=== PATIENT | male | born 1965 | race Asian ===

== ENCOUNTER 2021-07-04 20:37 | Emergency (ER) | payer BC, SELFPAY ==
[2021-07-04] VITALS (7 sets, daily range): BP systolic 121–135; BP diastolic 86–95; PULSE 80–94; RESP 16–25; TEMP 36.9; O2SAT 97–100
--- NOTE | ~2021-07-04 | XR_ITS ---
EXAMINATION: XR chest 2V 07/04/2021 21:21 INDICATION: Irregular heart rate PROCEDURE: 2 view chest COMPARISON: No prior studies for comparison. FINDINGS: The lungs are clear. The cardiomediastinal silhouette is within normal limits. There are no pleural effusions. There is no pneumothorax suspected. IMPRESSION: 1: NO ACUTE CARDIOPULMONARY DISEASE. Reviewed, dictated and finalized at location A. OMER SALES DISTRIBUTOR
--- NOTE | 2021-07-04 20:38 | ECG_ITS ---
Measurements Intervals [place] Rate: 81 P: 60 NV: 178 QRS: -70 QRSD: 112 T: 52 QT: 381 QTc: 443 Interpretive Statements SINUS RHYTHM ATRIAL PREMATURE COMPLEXES INCOMPLETE RIGHT BUNDLE BRANCH BLOCK LEFT ANTERIOR FASCICULAR BLOCK ABNORMAL ECG Electronically Signed On 07-05-2021 7:50:12 TOWEL HEMMER by Roby Johnson D.O.
[2021-07-04 21:21] LABS: Basophils Percent Auto 0.5 % (0.2-1.2); Eosinophils Absolute Auto 0.1 K/mm3 (0-0.3); Eosinophils Percent Auto 1.3 % (0-4.4); Hematocrit 43.2 % (42.0-52.0); Hemoglobin 14.2 g/dL (14.0-18.0); Immature Granulocyte Absolute 0.01 K/mm3 (0.00-0.031); Immature Granulocyte Percent A 0.1 % (0-0.5); Lymphocytes Absolute Auto 3.01 K/mm3 (0.9-3.2); Lymphocytes Percent Auto 36.3 % (18.3-44.2); Mean Corpuscular HGB Conc 32.9 g/dl (32-36); Mean Corpuscular Hemoglobin 30.1 pg (26-34); Mean Corpuscular Volume 91.5 fl (80-100); Mean Platelet Volume 10.1 fl (7.4-10.4); Monocytes Absolute Auto 0.6 K/mm3 (0.1-0.6); Monocytes Percent Auto 7.5 % (2.6-8.5); Neutrophils Absolute Auto 4.5 K/mm3 (1.3-6.7); Neutrophils Percent Auto 54.3 % (45.5-73.1); Platelet Count Result 196 k/mm3 (150-375); Red Blood Count 4.72 M/mm3 (4.6-6.20); Red Cell Distribution Width 12.8 % (11.5-14.5); White Blood Count 8.3 K/mm3 (4.5-10.0)
--- NOTE | 2021-07-04 21:28 | ED.ARRPALP ---
HPI - Arrhythmia/Palpitations General Chief Complaint: Arrhythmia/Palpitations Stated Complaint: Palpitations Time Seen by Provider: 07/04/21 20:41 History of Present Illness HPI narrative: Patient is a 56-year-old male who presents ER with palpitations. Reports for over 20 years of his life he has had PVCs that been picked up on Holter monitors and other exams. He was seen a practical nurse clinical coordinator who told him he could take magnesium document. Reports these moments of dropped beats occur when he is having stress. Reports he is not been having stress recently as he was recently passed a test at work that is leading to a promotion. Reports he has been feeling the dropped beats when he exercises which is atypical form. He also reports he had some cramping in his right shoulder yesterday afternoon. No fevers or chills or sweats. No chest pain. Reports he is contact his PCP and is scheduled to have a stress test next week. He is also recently cut caffeine out of his diet as he was drinking 4 cups of coffee every morning. Related Data Home Medications Medication Instructions Recorded Confirmed No Home Medications 03/23/21 03/23/21 Allergies Allergy/AdvReac Type Severity Reaction Status Date / Time No Known Allergies Allergy Verified 07/04/21 20:48 Review of Systems Review of Systems: All systems reviewed & are unremarkable except as noted in HPI and below Constitutional: Constitutional: Denies chills, Denies fever(s) and Denies weakness Cardiovascular: Cardiovascular: Denies chest pain and Denies rapid heart rate Comments: Dropped beats. Respiratory: Respiratory: Denies cough and Denies dyspnea Musculoskeletal: Musculoskeletal: Reports back pain, Denies arthralgias, Denies joint swelling and Reports muscle cramps [facility] Past Medical History Medical History (Updated 07/04/21 @ 22:20 by Gage Ken MD) History of retinal tear left eye 2009 Surgical History Surgical History (Updated 07/04/21 @ 21:33 by Gage Ken MD) No pertinent past surgical history Family History Family History Father Cancer Grandparent Thyroid disorder Social History Social History Smoking status: Never smoker Second hand tobacco smoke exposure: No Alcohol intake: never Substance use: never Substance use type: does not use Gender identity (if verbalized by the patient): Male Exam Narrative: GENERAL: Well-appearing, well-nourished, and in no acute distress. HEAD: Normocephalic, atraumatic. CHEST: Clear to auscultation. No respiratory distress. HEART: Regular rate and rhythm. Occasional dry peak correlating with PACs on monitor. Normal peripheral pulses. EXTREMITIES: Normal range of motion. No edema. SKIN: Warm, dry, no rash. NEURO: Alert and oriented x3. PSYCH: Normal mood and affect. Course Course Emergency Course: Patient resting comfortably. Informed results. Given reassurance. Follow-up with PCP. Vital Signs Vital signs: Vital Signs Temperature 98.5 F 07/04/21 20:46 Pulse Rate 94 07/04/21 20:46 Respiratory Rate 16 07/04/21 20:46 Blood Pressure 135/95 H 07/04/21 20:46 Pulse Oximetry 100 07/04/21 20:46 Temperature 98.5 F 07/04/21 20:46 Pulse Rate 81 07/04/21 21:45 Respiratory Rate 20 07/04/21 21:45 Blood Pressure 121/86 07/04/21 21:13 Pulse Oximetry 97 07/04/21 21:45 MDM - Arrhythmia/Palpitations Lab Data Result diagrams: 07/04/21 21:14 07/04/21 21:14 Labs: Lab Results 07/04/21 07/04/21 07/04/21 Range/Units 21:14 21:14 21:14 WBC 8.3 (4.5-10.0) K/mm3 RBC 4.72 (4.6-6.20) M/mm3 Hgb 14.2 (14.0-18.0) g/dL Hct 43.2 (42.0-52.0) % MCV 91.5 (80-100) fl MCH 30.1 (26-34) pg MCHC 32.9 (32-36) g/dl RDW 12.8 (11.5-14.5) % Plt Count 196 (150-375) k/mm3 MPV 10.1 (7.4
[2021-07-04 21:30] LABS: Alanine Aminotransferase 42 U/L (4-50); Albumin Level 4.2 g/dL (3.5-5.1); Alkaline Phosphatase 61 U/L (38-126); Anion Gap 7 mmol/L (8-16); Aspartate Amino Transferase 40 U/L (17-59); Bilirubin,Total 0.3 mg/dL (0.2-1.3); Blood Urea Nitrogen 15 mg/dL (9-20); Calcium 8.7 mg/dL (8.4-10.2); Carbon Dioxide 27 mmol/L (22-30); Chloride 105 mmol/L (98-107); Estimated CRCL calculation 77 ml/min; Estimated Glomerular Filt Rate > 60; Glucose 114 mg/dL (65-110); INR 0.9; Lipase 174 U/L (23-300); Potassium 3.5 mmol/L (3.4-5.0); Prothrombin Time 12.1 Seconds (11.1-14.7); Sodium 139 mmol/L (137-145)
[2021-07-04 21:31] LABS: Magnesium 2.3 mg/dL (1.6-2.3)
[2021-07-04 21:42] LABS: Troponin I < 0.012 ng/mL (0.000-0.034)
== END 2021-07-04 22:40 | disposition home or self-care (01) ==
PROVIDERS: Emergency Provider Emergency Medicine; PCP Internal Medicine
DX: I49.1 Atrial premature depolarization (principal); I45.2 Bifascicular block
CPT/HCPCS: 36415; 71046; 80053; 83690; 83735; 84484; 85025; 85610; 85730; 93005; 99284

== ENCOUNTER 2021-07-13 10:00 | Outpatient (CLI) | payer BC, SELFPAY ==
--- NOTE | 2021-07-13 10:04 | EST_ITS ---
Patient Info Name: Kirk Hanna Age: 56 years : 1965 Gender: Male Ht: 69 in Wt: 180 lbs BSA: 2.01 m2 HR: 85 bpm BP: 102 / 78 mmHg Heart Rhythm: Sinus Rhythm Exam Date: 07/13/2021 10:24 AM Exam Location: [facility] Stress Patient Status: Outpatient Admit Date: 07/13/2021 Staff Ordering Physician: Yun Ricci Attending Provider: DR. GERARD Exercise Technologist: Usha Spann CT Exercise Physician: Roby Gerard DO Exam Type: CA stress test treadmill Study Info Indications R00.2 - Palpitations A treadmill exercise stress test was performed. Summary 1. 1. Negative [place] exercise stress test for ischemic ST changes by ECG criteria. 2. 2. Good functional capacity, achieving 13 METs of workload. 3. 3. Appropriate HR response to exercise. 4. 4. Appropriate HR recovery at 1 minute post exercise. 5. 5. No imaging with stress testing. 6. 6. Patient informed of the above results. Protocol: [place] Stress ECG Details Stage: REST Duration (min): 1 min : 19 sec Speed (mph): 0.0 Grade (%): 0 HR (bpm): 83 SBP (mmHg): 102 DBP (mmHg): 78 METS: --- Stage: REST Duration (min): 7 min : 46 sec Speed (mph): 0.0 Grade (%): 0 HR (bpm): 86 SBP (mmHg): 102 DBP (mmHg): 78 METS: --- Stage: REST Duration (min): 9 min : 38 sec Speed (mph): 0.0 Grade (%): 0 HR (bpm): 87 SBP (mmHg): 102 DBP (mmHg): 78 METS: --- Stage: STAGE 1 Duration (min): 1 min : 0 sec Speed (mph): 1.7 Grade (%): 10 HR (bpm): 109 SBP (mmHg): 102 DBP (mmHg): 78 METS: --- Stage: STAGE 1 Duration (min): 2 min : 0 sec Speed (mph): 1.7 Grade (%): 10 HR (bpm): 112 SBP (mmHg): 102 DBP (mmHg): 78 METS: --- Stage: STAGE 1 Duration (min): 3 min : 0 sec Speed (mph): 1.7 Grade (%): 10 HR (bpm): 112 SBP (mmHg): 121 DBP (mmHg): 80 METS: --- Stage: STAGE 2 Duration (min): 1 min : 0 sec Speed (mph): 2.5 Grade (%): 12 HR (bpm): 120 SBP (mmHg): 121 DBP (mmHg): 80 METS: --- Stage: STAGE 2 Duration (min): 2 min : 0 sec Speed (mph): 2.5 Grade (%): 12 HR (bpm): 122 SBP (mmHg): 142 DBP (mmHg): 82 METS: --- Stage: STAGE 2 Duration (min): 3 min : 0 sec Speed (mph): 2.5 Grade (%): 12 HR (bpm): 123 SBP (mmHg): 142 DBP (mmHg): 82 METS: --- Stage: STAGE 3 Duration (min): 1 min : 0 sec Speed (mph): 3.4 Grade (%): 14 HR (bpm): 136 SBP (mmHg): 127 DBP (mmHg): 84 METS: --- Stage: STAGE 3 Duration (min): 2 min : 0 sec Speed (mph): 3.4 Grade (%): 14 HR (bpm): 143 SBP (mmHg): 127 DBP (mmHg): 84 METS: --- Stage: STAGE 3 Duration (min): 3 min : 0 sec Speed (mph): 3.4 Grade (%): 14 HR (bpm): 144 SBP (mmHg): 142 DBP (mmHg): 84 METS: --- Stage: STAGE
== END 2021-07-13 10:01 | disposition home or self-care (01) ==
PROVIDERS: PCP Internal Medicine; Visit Provider Internal Medicine
DX: R94.39 Abnormal result of other cardiovascular function study (principal)
CPT/HCPCS: 93017

== ENCOUNTER 2021-08-14 10:04 | Outpatient (CLI) | payer BC, SELFPAY ==
--- NOTE | 2021-08-18 11:26 | WPDHOLTEREM ---
Holter/Event Monitor Holter/Event Monitor Date of procedure: 08/14/21 Holter/Event Procedure: 48 Hr Holter Monitor Indications: Palpitations Conclusion: 1. 48 hour holter monitor on 08/14/21. 2. Underlying rhythm is sinus rhythm. HR range 55-122 bpm; average HR 79 bpm. 3. There are 6 premature supraventricular complexes and 1 supraventricular couplets. No supraventricular tachycardia. 4. No premature ventricular complexes. No ventricular tachycardia. 5. No sinoatrial or atrioventricular blocks. No significant pauses greater than 2 seconds. 6. Patient reports symptoms of palpitations which demonstrate sinus rhythm, HR range 68-107 bpm.
== END 2021-08-14 10:05 | disposition home or self-care (01) ==
LOC: ANHCARD 10:05
PROVIDERS: PCP Internal Medicine; Visit Provider Internal Medicine
DX: R00.2 Palpitations (principal)
CPT/HCPCS: 93225; 93226

== ENCOUNTER 2021-08-20 07:21 | Outpatient (CLI) | payer BC, SELFPAY ==
--- NOTE | 2021-08-20 07:49 | ECHO_ITS ---
Patient Info Name: Kirk Hanna Age: 56 years : 1965 Gender: Male Ht: 69 in Wt: 180 lbs BSA: 2.01 m2 HR: 78 bpm BP: 116 / 81 mmHg Technical Quality: Good Exam Date: 08/20/2021 8:01 AM Exam Location: [facility] Patient Status: Outpatient Admit Date: 08/20/2021 Staff Ordering Physician: Genaro Quinonez DO Assistant Sales Center Manager: Candy Valle RDCS Attending Provider: Genaro Quinonez DO Referring Physician: Cristiano GAINES; Exam Type: CA echo doppler color flow Study Info Indications R00.2 - Palpitations Complete two-dimensional, color flow and Doppler transthoracic echocardiogram is performed. Summary 1. Complete two-dimensional, color flow and Doppler transthoracic echocardiogram is performed. 2. Left ventricular chamber dimension is normal. 3. Left ventricular systolic function is normal, estimated at 60-65%. 4. The left ventricular diastolic function is grade I diastolic dysfunction. 5. E/e' 4 is not elevated. 6. Global longitudinal strain is normal at -17.0%. 7. No pulmonary hypertension, estimated pulmonary arterial systolic pressure is 22 mmHg. 8. The aortic root size at the sinus of Valsalva is borderline dilated at 4.0 cm. Left Ventricle E/e' 4 is not elevated. Global longitudinal strain is normal at -17.0%. Left ventricular chamber dimension is normal. Left ventricular systolic function is normal, estimated at 60-65%. The left ventricular diastolic function is grade I diastolic dysfunction. Right Ventricle Right ventricular systolic function is normal and with normal TAPSE 2.3 cm. Right ventricular chamber dimension is normal. Left Atria Left atrial chamber dimension is normal. Right Atria Right atrial chamber dimension is normal. Aortic Valve The aortic valve is trileaflet. There is no aortic valve stenosis. There is no aortic valve regurgitation. Pulmonic Valve There is no pulmonic regurgitation. Mitral Valve There is no mitral valve stenosis. There is no mitral valve regurgitation. Tricuspid Valve There is no tricuspid valve regurgitation. No pulmonary hypertension, estimated pulmonary arterial systolic pressure is 22 mmHg. Pericardium/Pleural There is no pericardial effusion. Inferior Vena Cava Normal inferior vena cava with >50% collapse upon inspiration consistent with normal right atrial pressure, 5 mmHg. Aorta The aortic root size at the sinus of Valsalva is borderline dilated at 4.0 cm. Left Ventricular Outflow Tract Name Value Normal LVOT 2D LVOT Diameter 2.4 cm LVOT Doppler LVOT Peak Gradient 2 mmHg LVOT Mean Gradient 1 mmHg LVOT VTI 14 cm LVOT VTI/AV VTI Ratio 1.0 LVOT Stroke Volume 66 ml LVOT CO 5.2 l/min LVOT CI 2.6 l/min/m2 Pulmonic Valve Name Value Normal
== END 2021-08-20 07:22 | disposition home or self-care (01) ==
PROVIDERS: PCP Internal Medicine; Visit Provider Internal Medicine
DX: R00.2 Palpitations (principal)
CPT/HCPCS: 93306

== ENCOUNTER 2021-09-11 09:39 | Outpatient (CLI) | payer BC, SELFPAY ==
--- NOTE | ~2021-09-11 | US_ITS ---
EXAMINATION: US aorta DATE: 09/11/2021 10:43 INDICATION: Enlarged aorta. TECHNIQUE: Grayscale, color Doppler, and pulsed Doppler images of the aorta and common iliac arteries were obtained. COMPARISON: None. FINDINGS: The aorta is normal in caliber. The right common iliac artery is normal in caliber. The left common i liac artery is normal in caliber. IMPRESSION: 1. No abdominal aortic aneurysm. Reviewed, dictated and finalized at location A.
== END 2021-09-11 09:40 | disposition home or self-care (01) ==
PROVIDERS: PCP Internal Medicine; Visit Provider Nurse Practitioner
DX: I77.89 Other specified disorders of arteries and arterioles (principal)
CPT/HCPCS: 76775

== ENCOUNTER 2021-10-13 08:35 | Outpatient (CLI) | payer BC, SELFPAY ==
--- NOTE | ~2021-10-13 | CT_ITS ---
EXAMINATION: CTA chest DATE: 10/13/2021 09:24 INDICATION: Heart palpitations and shortness of breath TECHNIQUE: Computed tomographic angiography (CTA) of the chest was performed without and with 100 mL Omnipque-300 intravenous contrast. Maximum intensity projection 3D-reconstructions of the aorta and o ther arteries were constructed by the technologist on a separate workstation. The dose-length product (DLP) was 322.95 mGy-cm. Automated exposure control and iterative reconstruction technique were empl oyed. COMPARISON: None. FINDINGS: The ascending aorta measures approximately 4.2 cm at the level of the sinuses of Valsalva a nd 3.5 cm at the level of the main pulmonary artery. There is no dissection. The heart size is normal . The lungs are free of focal airspace opacities. There is mild dependent atelectasis. There is no pl eural effusion or pneumothorax. No pathologically enlarged thoracic lymph nodes are identified. There is a 1.5 cm nodule of the right thyroid lobe. There is mild thoracic spondylosis. Stones are noted i n the nondistended gallbladder. IMPRESSION: 1. Mild dilation of the aorta at the sinuses of Valsalva. No dissection. 2. Right thyroid nodule. Consider thyroid ultrasound for risk stratification. 3. Cholelithiasis. Reviewed, dictated and finalized at location F.
== END 2021-10-13 08:36 | disposition home or self-care (01) ==
LOC: ANHIMG 08:35
PROVIDERS: PCP Internal Medicine; Visit Provider Internal Medicine Cardiovascular Disease
DX: I77.89 Other specified disorders of arteries and arterioles (principal); K80.20 Calculus of gallbladder without cholecystitis without obstruction; E04.1 Nontoxic single thyroid nodule; M47.814 Spondylosis without myelopathy or radiculopathy, thoracic region
CPT/HCPCS: 71275; Q9967

== ENCOUNTER 2021-11-06 15:32 | Outpatient (CLI) | payer BC, SELFPAY ==
--- NOTE | ~2021-11-06 | US_ITS ---
EXAMINATION: US thyroid DATE: 11/06/2021 16:14 INDICATION: Nontoxic single thyroid nodule TECHNIQUE: Multiple ultrasound images of the thyroid were obtained. COMPARISON: None. FINDINGS: The right thyroid lobe measures 6.1 x 2.4 x 1.7 cm. The left thyroid lobe measures 5.2 x 2.4 x 2.1 c m. Solid hypoechoic wider than tall nodules with smooth margins and without echogenic foci (TI-RADS 4, moderately suspicious , FNA if >=1.5 cm, annual followup is >=1 cm) measuring 10 mm the inferior r ight thyroid, 8 mm at the inferior left thyroid and 2 mm at the junction of the right thyroid lobe an d isthmus. There is normal echotexture, echogenicity and vascular flow throughout the remainder of th e thyroid gland. IMPRESSION: 1. Multinodular goiter with a few TI-RADS 4 nodules, the largest measuring up to 10 mm for which shelbie al ultrasound follow-up would be recommended. Reviewed, dictated and finalized at location A. IMPRESSION: 1. Multinodular goiter with a few TI-RADS 4 nodules, the largest measuring up t o 10 mm for which annual ultrasound follow-up would be recommended.
== END 2021-11-06 15:33 | disposition home or self-care (01) ==
PROVIDERS: PCP Internal Medicine; Visit Provider Internal Medicine
DX: E04.2 Nontoxic multinodular goiter (principal)
CPT/HCPCS: 76536

== ENCOUNTER → 2021-12-28 09:22 | Outpatient (CLI) | payer BC, SELFPAY ==
[2021-12-28 11:09] LABS: SARS-CoV-2 RNA PCR Positive
== END ==
PROVIDERS: PCP Internal Medicine; Visit Provider Internal Medicine
DX: U07.1 COVID-19 (principal)
CPT/HCPCS: C9803; U0003; U0005

== ENCOUNTER 2022-09-11 08:33 | Emergency (ER) | payer BC, SELFPAY ==
[2022-09-11] VITALS (16 sets, daily range): BP systolic 110–138; BP diastolic 69–93; PULSE 72–90; RESP 13–22; O2SAT 96–100
--- NOTE | ~2022-09-11 | XR_ITS ---
EXAMINATION: XR chest 2V DATE: 09/11/2022 09:40 INDICATION: Chest pain TECHNIQUE: Frontal and lateral views of the chest are obtained COMPARISON: 07/04/2021 FINDINGS: The lungs are free of acute opacities. No pleural effusion or pneumothorax. The cardiomedia stinal silhouette is normal. There is mild thoracic spondylosis. IMPRESSION: 1. No acute cardiopulmonary abnormality. Reviewed, dictated and finalized at location A.
--- NOTE | ~2022-09-11 | CT_ITS ---
EXAMINATION: CTA chest abdomen DATE: 09/11/2022 10:03 INDICATION: Midsternal chest pain TECHNIQUE: Computed tomographic angiography (CTA) of the chest and abdomen was performed with 100 mL Omnipque-350 intravenous contrast. Maximum intensity projection 3D-reconstructions of the aorta and o ther arteries were constructed by the technologist on a separate workstation. The dose-length product (DLP) was 581.02 mGy-cm. Automated exposure control and iterative reconstruction technique were empl oyed. COMPARISON: 10/13/2021 FINDINGS: CHEST CTA: There is stable dilatation of the ascending aorta at the level of the sinuses of Valsalva measuring 4 .3 cm. The ascending aorta measures 3.4 cm at the level of the main pulmonary artery. There is no dis section. No pathologically enlarged thoracic lymph nodes are identified. The heart size is normal. Th ere is mild dependent atelectasis of the lungs. No pleural effusion or pneumothorax. Thyroid nodules are again noted which have been evaluated by thyroid ultrasound. There is mild thoracic spondylosis. ABDOMEN CTA: No aneurysm or dissection of the abdominal aorta. The celiac axis is small in size and gives rise to left gastric artery. The common hepatic and splenic arteries, and their associated branches, arise fr om the superior mesenteric artery. The inferior mesenteric artery is normal at its origin. There are single renal arteries. Stones are present in the nondistended gallbladder. Cysts of the liver measure up to 7 mm in the right hepatic lobe. The spleen, pancreas, and adrenal glands are normal. The kidne ys are unremarkable. There are no pathologically enlarged abdominal lymph nodes. No free intraperiton eal gas or evidence of bowel obstruction. IMPRESSION: 1. Stable mild dilatation of the ascending aorta at the sinuses of Valsalva. No dissection. 2. Cholelithiasis without evidence of cholecystitis. Reviewed, dictated and finalized at location A.
--- NOTE | 2022-09-11 08:36 | ECG_ITS ---
Measurements Intervals [place] Rate: 80 P: 78 MA: 183 QRS: -84 QRSD: 100 T: 65 QT: 383 QTc: 442 Interpretive Statements SINUS RHYTHM WITH SINUS ARRHYTHMIA INCOMPLETE RIGHT BUNDLE BRANCH BLOCK [90+ ms QRS DURATION, TERMINAL R IN V1/V2, 40+ ms S IN I/aVL/V4/V5/V6] LEFT ANTERIOR FASCICULAR BLOCK [QRS AXIS <= -45, QR IN I, RS IN II] COMPARED TO ECG 07/04/2021 20:41:24 SINUS ARRHYTHMIA NOW PRESENT Electronically Signed On 09-11-2022 12:17:19 CDT by Jesse Martinez M.D.
[2022-09-11] MEDS: ASPIRIN 81 MG CHEWABLE TABLET 324 MG PO (08:45)
[2022-09-11 09:01] LABS: Basophils Percent Auto 0.5 % (0.2-1.2); Eosinophils Absolute Auto 0.1 K/mm3 (0-0.3); Eosinophils Percent Auto 1.7 % (0-4.4); Hematocrit 46.9 % (42.0-52.0); Hemoglobin 15.1 g/dL (14.0-18.0); Immature Granulocyte Absolute 0.04 K/mm3 (0.00-0.031); Immature Granulocyte Percent A 0.6 % (0-0.5); Lymphocytes Absolute Auto 2.05 K/mm3 (0.9-3.2); Lymphocytes Percent Auto 30.9 % (18.3-44.2); Mean Corpuscular HGB Conc 32.2 g/dl (32-36); Mean Corpuscular Hemoglobin 29.5 pg (26-34); Mean Corpuscular Volume 91.6 fl (80-100); Mean Platelet Volume 10.1 fl (7.4-10.4); Monocytes Absolute Auto 0.3 K/mm3 (0.1-0.6); Neutrophils Absolute Auto 4.1 K/mm3 (1.3-6.7); Neutrophils Percent Auto 61.3 % (45.5-73.1); Platelet Count Result 220 k/mm3 (150-375); Red Blood Count 5.12 M/mm3 (4.6-6.20); Red Cell Distribution Width 13.5 % (11.5-14.5); White Blood Count 6.6 K/mm3 (4.5-10.0)
[2022-09-11 09:10] LABS: Alanine Aminotransferase 48 U/L (6-50); Albumin Level 4.6 g/dL (3.5-5.1); Alkaline Phosphatase 52 U/L (38-126); Anion Gap 7 mmol/L (8-16); Aspartate Amino Transferase 44 U/L (17-59); Bilirubin,Total 0.8 mg/dL (0.2-1.3); Blood Urea Nitrogen 13 mg/dL (9-20); Calcium 8.9 mg/dL (8.4-10.2); Carbon Dioxide 30 mmol/L (22-30); Chloride 103 mmol/L (98-107); Estimated CRCL calculation 91 ml/min; Estimated Glomerular Filt Rate > 60; Glucose 87 mg/dL (65-110); Lipase 180 U/L (23-300); Potassium 4.1 mmol/L (3.4-5.0); Sodium 140 mmol/L (137-145)
[2022-09-11 09:11] LABS: INR 0.9; Partial Thromboplastin Time 31.1 SECONDS (22.3-36.8); Prothrombin Time 12.3 Seconds (11.1-14.7)
[2022-09-11 09:22] LABS: Troponin I < 0.012 ng/mL (0.000-0.034)
--- NOTE | 2022-09-11 09:47 | ED.CHESTPAIN ---
HPI - Chest Pain General Chief Complaint: Chest Pain <Mariaelena Bryant PA-C - Last Filed: 09/11/22 12:54> Stated Complaint: chest pain <JACOBY Lynch Last Filed: 09/11/22 12:54> Time Seen by Provider: 09/11/22 09:01 <Mariaelena Bryant PA-C - Last Filed: 09/11/22 12:54> History of Present Illness HPI narrative: 57-year-old male with a history of IBS reports for evaluation of chest pain that started yesterday. Patient states he was sitting in his recliner last night at 10 PM when he experienced a sharp substernal chest pain that lasted a couple seconds, followed by intermittent chest tightness until he went to sleep. Patient reports waking up this morning with intermittent chest tightness, went about his day and began to experience the sharp chest pain again while eating breakfast. Reports it lasted a couple seconds again, simultaneously he experienced nausea and right-sided jaw pain lasting a few seconds. States since then the chest pain has subsided and he is currently denying chest pain. He does endorse shortness of breath that only occurs when he takes a shower which has been ongoing for the past year. Patient also reports palpitations that occur when he exercises which has been going on for the past year. He was evaluated by Dr. Johnson in 2021 with an ultimately unremarkable work-up other than a mild dilation of ascending aorta at 4.2 cm. Patient is denying current shortness of breath, chest pain, abdominal pain, syncope or dizziness, nausea, vomiting, lower extremity edema, cough or congestion. <Mariaelena Bryant PA-C - Last Filed: 09/11/22 12:54> Related Data Home Medications: Home Medications Medication Instructions Recorded Confirmed ascorbate calcium (vitamin C) 500 500 mg PO DAILY 09/30/21 03/29/22 mg tablet multivitamin 1 tablet PO DAILY 09/30/21 03/29/22 <Mariaelena Bryant PA-C - Last Filed: 09/11/22 12:54> Allergies/Adverse Reactions: Allergies Allergy/AdvReac Type Severity Reaction Status Date / Time No Known Allergies Allergy Verified 09/11/22 08:52 <JACOBY Lynch Last Filed: 09/11/22 12:54> Review of Systems Review of Systems: CONSTITUTIONAL: Denies fever, chills EYES: Denies visual changes, redness, or discharge. ENT: Denies rhinorrhea, congestion, sore throat, or otalgia. CARDIOVASCULAR: See HPI RESPIRATORY: Denies cough or dyspnea. GASTROINTESTINAL: Denies abdominal pain, nausea, vomiting, or diarrhea. GENITOURINARY: Denies dysuria or hematuria. SKIN: Denies rash or itching. MUSCULOSKELETAL: Denies back pain, joint pain, or myalgia. NEUROLOGIC: Denies headache, numbness, dizziness, or weakness. PSYCHIATRIC: Denies anxiety or depression. <Mariaelena Bryant PA-C - Last Filed: 09/11/22 12:54> [facility] Past Medical History Medical History: Medical History History of retinal tear left eye 2009 <Mariaelena Bryant PA-C - Last Filed: 09/11/22 12:54> Surgical History Surgical History: Surgical History No pertinent past surgical history <Mariaelena Bryant PA-C - Last Filed: 09/11/22 12:54> Family History Family History: Family History Father Cancer Grandparent Thyroid disorder <Mariaelena Bryant PA-C - Last Filed: 09/11/22 12:54> Social History Social History: Social History Smoking status: Never smoker Second hand tobacco smoke exposure: No Alcohol intake: never Substance use: never Substance use type: does not use Lack of Transportation: No Lack of Food: Never True Current Housing: I Have Housing Concerned About Future Housing: No Difficulty Paying Gas/Electric Bills: No Difficulty Paying for Meds: No Currently Unemployed: No Education: [employer]
[2022-09-11 12:15] LABS: NT Pro B Type Natriuretic Pept 45 pg/mL (19.9-100); Troponin I < 0.012 ng/mL (0.000-0.034)
== END 2022-09-11 12:54 | disposition home or self-care (01) ==
PROVIDERS: Emergency Medicine; Emergency Provider Physician Assistant; PCP Internal Medicine
DX: R07.89 Other chest pain (principal); I77.819 Aortic ectasia, unspecified site; K80.20 Calculus of gallbladder without cholecystitis without obstruction
CPT/HCPCS: 36415; 71046; 71275; 74175; 80053; 83690; 83880; 84484; 85025; 85610; 85730; 93005; 99284; A9270; Q9967

== ENCOUNTER 2023-04-27 08:31 | Outpatient (CLI) | payer BC, SELFPAY ==
--- NOTE | ~2023-04-27 | US_ITS ---
EXAMINATION: US thyroid DATE: 04/27/2023 09:07 INDICATION: Nontoxic single thyroid nodule. TECHNIQUE: Multiple ultrasound images of the thyroid were obtained. COMPARISON: Ultrasound 11/06/2021 FINDINGS: The right thyroid lobe measures 5.5 x 2.0 x 1.8 cm. The left thyroid lobe measures 5.0 x 1.8 x 2.1 c m. In the right thyroid lobe, there is a 2.1 cm solid, hypoechoic, wider than tall nodule with crystal h margin without echogenic foci (TI-RADS TR4). In the right thyroid lobe, there is a 1.4 cm solid, hy poechoic, wider than tall nodule with lobulated margin without echogenic foci (TR4). In the left thyr oid lobe, there is a 9 mm solid, hypoechoic, wider than tall nodule with smooth margin without echoge brandi foci (TR4). In the left thyroid lobe, there is a 6 mm solid, hypoechoic, wider than tall nodule w ith smooth margin without echogenic foci (TR4). IMPRESSION: 1. Multinodular goiter. Ultrasound-guided fine-needle aspiration of the 2.1 cm right thyroid nodule i s recommended. Reviewed, dictated and finalized at location A. OL YEAR NANNY IMPRESSION: 1. Multinodular goiter. Ultrasound-guided fine-needle aspiration of the 2.1 cm right thyroid nodule is recommended.
== END 2023-04-27 08:32 | disposition home or self-care (01) ==
PROVIDERS: PCP Family Medicine; Visit Provider Nurse Practitioner Family
DX: E04.2 Nontoxic multinodular goiter (principal)
CPT/HCPCS: 76536

== ENCOUNTER 2023-05-26 12:40 | Outpatient (CLI) | payer BC, SELFPAY ==
--- NOTE | ~2023-05-26 | US_ITS ---
EXAMINATION: US FNA w image guidance DATE: 05/26/2023 13:43 INDICATION: Nontoxic single thyroid nodule. TECHNIQUE: The procedure and its benefits and risks were discussed with the patient. Risks specifically discusse d included bleeding. The patient verbalized understanding of the risks and agreed to proceed. The nec k was prepped and draped in the usual sterile manner. 1% lidocaine was used for local anesthesia. 7 passes were made with a 25G needle into the lesion under ultrasound guidance. There were no immedia te complications. FINDINGS: Grayscale ultrasound images demonstrate needles advanced into a 2.0 cm nodule in right thyroid lobe f or biopsy. IMPRESSION: 1. Ultrasound-guided fine needle aspiration of a right thyroid nodule. Reviewed, dictated and finalized at location A. EXAMINER
== END 2023-05-26 12:41 | disposition home or self-care (01) ==
PROVIDERS: PCP Family Medicine; Visit Provider Nurse Practitioner Family
DX: E04.1 Nontoxic single thyroid nodule (principal)
CPT/HCPCS: 10005; 88172; 88173; 88305

== ENCOUNTER 2024-06-21 14:09 | Outpatient (CLI) | payer BC, SELFPAY ==
--- NOTE | ~2024-06-21 | US_ITS ---
EXAMINATION: US soft tissue groin RT DATE: 06/21/2024 14:32 INDICATION: Right lower quadrant abdominal pain. TECHNIQUE: Multiple grayscale and Doppler ultrasound images of the right groin were obtained. COMPARISON: None FINDINGS: There is a right inguinal hernia containing fat. IMPRESSION: 1. Right inguinal hernia containing fat. Reviewed, dictated and finalized at location A. S LOADER
== END 2024-06-21 14:10 | disposition home or self-care (01) ==
LOC: GOSHIMG 14:10
PROVIDERS: PCP Nurse Practitioner Family; Visit Provider Nurse Practitioner Family
DX: K40.90 Unilateral inguinal hernia, without obstruction or gangrene, not specified as recurrent (principal)
CPT/HCPCS: 76882

== ENCOUNTER 2024-08-03 14:43 | Outpatient (CLI) | payer BC, SELFPAY | END 2024-08-03 14:44 | disposition home or self-care (01) | PROVIDERS: PCP Nurse Practitioner Family; Visit Provider Surgery | DX: Z01.818 Encounter for other preprocedural examination (principal); K40.90 Unilateral inguinal hernia, without obstruction or gangrene, not specified as recurrent | CPT/HCPCS: 36415; 86850; 86900; 86901 ==

== ENCOUNTER 2024-08-07 00:48 | Day surgery (SDC) | payer BC, SELFPAY ==
[2024-07-05 13:03] VITALS: BMI 26.6
--- NOTE | 2024-07-05 13:11 | PC.NURSE ---
Report to the Outpatient Waiting Room, entrance under the green pavilion located off [facility], at time _0930_ on date _[id number]_. Planned Procedure Time: _1130_.? Time changes happen often and if your time is changed the preop area will call you the afternoon before. - You and your visitor will be asked to self-screen and do not enter if you have any COVID symptoms. Please call surgeon if you need to reschedule. - A mask is optional within the hospital at this time. Patients may have clear liquids (water, carbonated beverages, clear teas, apple juice) until 3 hours prior to surgery with a maximum of 20 ounces. - No food from midnight until time of surgery and no smoking, or chewing tobacco (or any form of nicotine). No chewing gum, candy or mints. Take only the following medications with a SIP of water on the morning of surgery: ___None___ DO NOT STOP ANY OF YOUR OTHER PRESCRIPTION MEDICATIONS PRIOR TO SURGERY EXCEPT THE FOLLOWING Hold all vitamins and supplements for 3 days per anesthesiologist. Medications to discontinue per physician ___ Date to take last uags__[id number]___ Please no make-up, nail slovenian, hairspray, perfume, deodorant, or body powder the day of surgery.? No jewelry (including any body piercings) or valuables the day of surgery, leave them at home.? Please take a shower or bath the night before, or the morning of, surgery with an antibacterial soap.? Wear comfortable, loose fitting clothing.? - Jewelry must be removed prior to entering the operating room.? Rings and piercings that are not removed may be cut off. - The hospital will not accept responsibility for valuables.? - Please leave all valuables, including medications, at home the day of surgery. If you are going home after surgery, a licensed hydraulic lift driver must drive you home.? - NO public transportation without another adult if you receive anesthesia. - We recommend that an adult stay with you for 24 hours following discharge. - We also recommend that you do not drive, make important decision, drink alcoholic beverages, or take any drugs that were not prescribed by your health care provider for at least 24 hours after your discharge time. Follow any additional instructions given to you from your surgeon. Telephone instructions given to __Glenn__and asked if any additional questions and then verbalized understanding. Patient advised to call surgeon office or pre surgery nurse liaison [phone] if any additional questions.
--- NOTE | 2024-07-05 13:53 | PC.NURSE ---
Report to the Outpatient Waiting Room, entrance under the green pavilion located off [facility], at time _0930_ on date _[phone]_. Planned Procedure Time: _1130_.? Time changes happen often and if your time is changed the preop area will call you the afternoon before. - You and your visitor will be asked to self-screen and do not enter if you have any COVID symptoms. Please call surgeon if you need to reschedule. - A mask is optional within the hospital at this time. Patients may have clear liquids (water, carbonated beverages, clear teas, apple juice) until 3 hours prior to surgery with a maximum of 20 ounces. - No food from midnight until time of surgery and no smoking, or chewing tobacco (or any form of nicotine). No chewing gum, candy or mints. Take only the following medications with a SIP of water on the morning of surgery: __None____ DO NOT STOP ANY OF YOUR OTHER PRESCRIPTION MEDICATIONS PRIOR TO SURGERY EXCEPT THE FOLLOWING Hold all vitamins and supplements for 3 days per anesthesiologist. Medications to discontinue per physician ___ Date to take last dlso__[id number]___ Please no make-up, nail ukrainian, hairspray, perfume, deodorant, or body powder the day of surgery.? No jewelry (including any body piercings) or valuables the day of surgery, leave them at home.? Please take a shower or bath the night before, or the morning of, surgery with an antibacterial soap.? Wear comfortable, loose fitting clothing.? - Jewelry must be removed prior to entering the operating room.? Rings and piercings that are not removed may be cut off. - The hospital will not accept responsibility for valuables.? - Please leave all valuables, including medications, at home the day of surgery. If you are going home after surgery, a licensed party bus driver must drive you home.? - NO public transportation without another adult if you receive anesthesia. - We recommend that an adult stay with you for 24 hours following discharge. - We also recommend that you do not drive, make important decision, drink alcoholic beverages, or take any drugs that were not prescribed by your health care provider for at least 24 hours after your discharge time. Follow any additional instructions given to you from your surgeon. Telephone instructions given to __Glenn__and asked if any additional questions and then verbalized understanding. Patient advised to call surgeon office or pre surgery nurse liaison [phone] if any additional questions.
[2024-08-07] VITALS (8 sets, daily range): BP systolic 115–188; BP diastolic 65–88; PULSE 74–87; RESP 10–17; TEMP 36.5–36.6; O2SAT 100
--- NOTE | 2024-08-07 10:24 | P.PNAN_ITS ---
Anes - Initial Pre Proc Eval Procedure: Operation Date: 08/07/24 11:30 Proposed Procedures p Laparoscopic Right Inguinal Hernia Repair with Mesh, Davinci Assisted - Ulysses Gaxiola DO Date/Time: 08/07/24 10:24 Surgeon: Ulysses Gaxiola DO Pre Op Diagnosis: Right Inguinal Hernia Patient Data Age: 59 Gender: M Height: 1.75 m Weight: 81.8 kg Allergies Allergy/AdvReac Type Severity Reaction Status Date / Time No Known Allergies Allergy Verified 07/05/24 13:02 Home Medications ?Medication ?Instructions ?Recorded ?Confirmed ?Type vit C-vit L-rvzjsk-qiqsxhvu capsule 1 cap PO DAILY 04/11/23 07/05/24 History ascorbic acid (vitamin C) 1,000 mg 2 g PO DAILY 07/05/24 07/05/24 History tablet (C-1000) Patient hx anesthesia problems: none Family hx anesthesia problems: none Results Review: All pre-operative results and documents have been reviewed as part of the pre- operative evaluation. FORMERLY [facility] Past Medical History Medical History Encounter for preventative adult health care examination Retinal tear COVID-19 Encounter to establish care Encounter for vitamin deficiency screening Screening for thyroid disorder Screening for prostate cancer Screening for lipid disorders Screening for diabetes mellitus Screening for cardiovascular condition History of retinal tear left eye 2008 Surgical History Surgical History No pertinent past surgical history Family History Family History Father Cancer Grandparent Thyroid disorder Social History Social History Smoking status: Never smoker Second hand tobacco smoke exposure: No Alcohol intake: never Substance use: never Substance use type: does not use Lack of Transportation: No Lack of Food: Never True Current Housing: I Have Housing Concerned About Future Housing: No Difficulty Paying Gas/Electric Bills: No Difficulty Paying for Meds: No Currently Unemployed: No Education: Bachelor's Degree Difficulty w/ Childcare or Family Care: No Living arrangements: with family Occupation/Education: occupation Gender identity (if verbalized by the patient): Male Spiritual care concerns: No Anes - Eval Final PreProcedure Day of Procedure 08/07/24 10:24 Patient weight: normal Heart: regular rate and rhythm Lungs: clear to auscultation Airway: Mallampati scale class II Neurological: alert and oriented Last oral intake: >/= 8 hours ASA classification: II Emergent: no Anesthetic plan: proceed Anesthesia type and monitoring: general ETT and standard monitoring Results Review: All pre-operative results and documents have been reviewed as part of the pre- operative evaluation. Informed Consent: The patient's anesthetic plan and its attendant risks and benefits were discussed with the patient/family/POA. Questions were solicited and answers provided to the satisfaction of the patient/family/POA.
[2024-08-07] MEDS: KETOROLAC 15 MG/ML VIAL (*BKC) IV PUSH (10:30)
[2024-08-07] MEDS: ACETAMINOPHEN 500 MG TABLET 1000 MG PO (10:30)
[2024-08-07] MEDS: LACTATED RINGERS 1,000 ML 30 ML IV CONT ×3 (10:30→14:34)
--- NOTE | 2024-08-07 12:21 | WPDHPUPDATE1 ---
History and Physical Update Update Date/Time: 08/07/24 12:21 History and Physical has been reviewed, including an updated exam of the patient. There are NO changes in the patient's condition. Risks, benefits, and alternatives have been discussed and questions answered. Patient agrees to proceed with procedure.
--- NOTE | 2024-08-07 12:21 | PM.IMHP ---
H&P: HPI History of Present Illness Date/Time: 08/07/24 12:21 Chief Complaint: Right inguinal hernia Narrative: This is a 59-year-old man who presents for right inguinal hernia repair. He reports no significant medical changes since last seen in the office. Review of Systems Review of Systems: All systems reviewed & are unremarkable except as noted in HPI and below Constitutional: Constitutional: Denies chills, Denies fever(s), Denies headache(s) and Denies weight loss Eyes: Eyes: Denies change in vision ENT: Denies dizziness, Denies headache(s), Denies neck mass and Denies throat swelling Cardiovascular: Cardiovascular: Denies chest pain, Denies lightheadedness and Denies dyspnea Respiratory: Respiratory: Denies cough, Denies dyspnea and Denies wheezing Gastrointestinal: Gastrointestinal: Denies abdominal pain, Denies change in bowel habits, Denies nausea and Denies vomiting Genitourinary: Genitourinary: Denies hematuria and Denies dysuria Musculoskeletal: Musculoskeletal: Reports as per HPI Integumentary/Breasts: Skin/Breast: Reports as per HPI Neurologic: Denies dizziness and Denies headache(s) Allergic/Immunologic: Allergic/Immunologic: Denies throat swelling and Denies wheezing PMFSH Past Medical History Medical History Encounter for preventative adult health care examination Retinal tear COVID-19 Encounter to establish care Encounter for vitamin deficiency screening Screening for thyroid disorder Screening for prostate cancer Screening for lipid disorders Screening for diabetes mellitus Screening for cardiovascular condition History of retinal tear left eye 2008 Surgical History Surgical History No pertinent past surgical history Family History Family History Father Cancer Grandparent Thyroid disorder Social History Social History Smoking status: Never smoker Second hand tobacco smoke exposure: No Alcohol intake: never Substance use: never Substance use type: does not use Lack of Transportation: No Lack of Food: Never True Current Housing: I Have Housing Concerned About Future Housing: No Difficulty Paying Gas/Electric Bills: No Difficulty Paying for Meds: No Currently Unemployed: No Education: Bachelor's Degree Difficulty w/ Childcare or Family Care: No Living arrangements: with family Occupation/Education: occupation Gender identity (if verbalized by the patient): Male Spiritual care concerns: No Meds Home Medications and Allergies Home Medications ?Medication ?Instructions ?Recorded ?Confirmed ?Type vit C-vit Q-zyidiz-jqqdrstz capsule 1 cap PO DAILY 04/11/23 08/07/24 History ascorbic acid (vitamin C) 1,000 mg 2 g PO DAILY 07/05/24 08/07/24 History tablet (C-1000) Allergies Allergy/AdvReac Type Severity Reaction Status Date / Time No Known Allergies Allergy Verified 08/07/24 11:12 Vital Signs Vital Signs - 24 hr 08/07/24 10:30 Temperature 97.7 F Pulse Rate 84 Respiratory Rate 14 Blood Pressure 120/83 Pulse Oximetry 100 Oxygen Delivery Room Air Exam Const: General: no acute distress and alert Orientation/consciousness: patient oriented x3 HENMT: Head: normocephalic and atraumatic Ears: hearing grossly normal bilaterally Face/Nose/Sinus: Normal nares present Mouth: Yes Normal oral and palatal mucosa present Eyes: Periorbital: periorbital findings normal Sclera: sclerae normal EOM: EOMs intact bilaterally Neck: Neck: normal visual inspection, no lymphadenopathy and trachea midline Chest: Chest palpation & inspection: normal inspection of the chest Resp: Effort & Inspection: normal respiratory effort Auscultation: clear to auscultation bilaterally Cardio: Jugular venous distension: no JVD Rate: regular rate Rhythm: regular rhythm Heart sounds: S1 normal heart sound present and S2 normal heart sound present Peripheral pulses: Peripheral pulses 2+ throughout GI: Inspection: normal to inspection GI Palp: Yes Soft to palpation, No Tenderness to palpation present (GI), No Guarding due to palpation present (GI) and No Rebound tenderness present Percussion: Yes normal to percussion Auscultation: normal bowel sounds : General: Yes no CVA tenderness Scrotum: inguinal hernia on the right Back/Spine/Pelvis: Back: no CVA tenderness Neuro: General: patient oriented x3, no focal motor deficits and CN's II-XI intact bilaterally Cognition (Neuro): normal cognition Speech: normal speech Motor exam (neuro): 5/5 motor strength present throughout Extrem: General: capillary refill normal and no clubbing, cyanosis or edema Assessment and Plan Assessment and plan (1) Right inguinal hernia: Code(s): K40.90 - Unilateral inguinal hernia, without obstruction or gangrene, not specified as recurrent Status: Acute Assessment and Plan: I have recommended laparoscopic right inguinal hernia repair with mesh, da Criss assisted. I have discussed the procedure, risks, benefits, and alternatives with the patient. All questions answered. No changes since last seen in office.
[2024-08-07] MEDS: ceFAZolin 2 GM/D5W 50 ML 2 GM/50 ML BAG IVPB (12:36)
[2024-08-07] MEDS: BUPIVACAINE/EPINEPHRINE 0.5% 50 ML VIAL 30 ML INFILTRATE (13:24)
--- NOTE | 2024-08-07 13:59 | W.PM.PROC2 ---
Procedure Note - Detailed Date of Procedure 08/07/24 Pre-op Diagnosis Right Inguinal Hernia Post-op Diagnosis Same (Indirect RIH) Procedure Performed Laparoscopic right inguinal hernia repair with mesh, da Criss assisted Surgeon Ulysses Gaxiola DO Anesthesia General and Local (0.5% bupivacaine with epinephrine) Indications This is a 59-year-old man who presented with a right groin bulge that he noticed about 2 months ago. He was having some slight discomfort in the area. A right groin ultrasound showed evidence of a fat containing right inguinal hernia. Discussions were made with the patient about treatment options and decision was made to proceed with robotic assisted laparoscopic right inguinal with mesh. Findings Robotic assisted laparoscopic right inguinal hernia repair with mesh was performed. The patient was found to have a small indirect right inguinal hernia defect. A robotic transabdominal preperitoneal approach was utilized for repair. Once a wide enough preperitoneal pocket was created and the hernia sac was reduced, I then placed a large right 3DMax mid mesh overlying the entire right myopectineal orifice. No specimens were obtained for pathology. There was no evidence of a left inguinal hernia. Description of Procedure Procedure as well as risks, benefits, and alternatives were discussed with the patient. Written consent was obtained and placed in chart prior to procedure. Patient was brought back to surgical suite. He was placed supine on operating table. Time-out was done to confirm patient and procedure. He was then intubated by Anesthesia Department. His abdomen was prepped and draped in sterile fashion using chlorhexidine prep. 0.5% bupivacaine with epinephrine was infiltrated at each location for incision. An 8 mm incision was made in the left lateral abdomen, and a 5 mm Optiview trocar was advanced through the abdominal layers under direct visualization. Once inside the abdominal cavity, carbon dioxide insufflation was used to create a pneumoperitoneum. A camera was inserted and the abdominal cavity was inspected. The patient was placed in slight Trendelenburg position. An 8 millimeter incision was made on the right lateral abdomen and an 8 millimeter trocar was inserted under direct visualization. Another 8 millimeter incision was made just superior to the umbilicus and an 8 millimeter trocar was inserted under direct visualization. The 5 mm port was then removed and this was replaced with another 8 mm robotic port. The robotic arms were brought up to the patient's bedside and secured to the ports. The camera and instruments were inserted. I then moved over to the robotic console and took control of the camera and instruments. After careful inspection of the abdominal cavity, I began scoring the peritoneum along the right lower quadrant using scissors with electrocautery. The preperitoneal plane was entered and this was carefully dissected caudally along the inferior epigastric vessels. Careful dissection with scissors with electrocautery and blunt dissection was used to continue this dissection. I dissected far enough laterally to allow for mesh placement, and also dissected medially to identify the pubic arch and Dany's ligament. The hernia sac was identified and carefully dissected posteriorly. The cord contents were also identified and the peritoneum was carefully dissected far enough posteriorly to allow for mesh placement. Once an adequate pocket was created, I then placed the mesh within the preperitoneal pocket and carefully unfolded it. The mesh was centered on the hernia defect with adequate overlap circumferentially. The inferior edge of the mesh was inspected to ensure that it was far enough away from the peritoneal edge. The mesh appeared in proper position overlying the entire myopectineal orifice. The mesh was secured using 3-0 Vicryl simple interrupted sutures in Dany's ligament, the superior medial edge, and superior lateral edge of the mesh. The peritoneum was then closed over the mesh using a 3-0 V-lock running absorbable suture. The robotic instruments were removed. The robotic arms were disengaged from the ports and moved away from the bedside. The patient was flattened out in bed, the ports were removed under direct visualization, and the pneumoperitoneum was released. The skin of the incisions was approximated using 4-0 Monocryl subcuticular suture, and Exofin glue was applied on top. The patient was awakened from anesthesia, extubated, and transferred to recovery. Implants Large right 3DMax mid mesh Estimated Blood Loss 5 Complications No immediate complications Condition Stable Disposition Same day [facility] Billing Surgery - Charge Forward: Surgery Billing
--- NOTE | 2024-08-07 15:21 | SUR.PHASEII ---
1520: Patient dressed and ready for dc. waiting on jewel ride.
== END 2024-08-07 15:56 | disposition home or self-care (01) ==
PROVIDERS: PCP Nurse Practitioner Family; Visit Provider Surgery
PROC: 8E0Y4CZ Robotic Assisted Procedure of Lower Extremity, Percutaneous Endoscopic Approach (ICD-10-PCS; CPT 49650; principal; 2024-08-07 11:30)
DX: K40.90 Unilateral inguinal hernia, without obstruction or gangrene, not specified as recurrent (principal); Z80.9 Family history of malignant neoplasm, unspecified
CPT/HCPCS: 49650; S2900; A9270; C1781; J0690; J1100; J1885; J2003; J2250; J2371; J2405; J2704; J3010; J7120

== ENCOUNTER 2025-01-22 07:44 | Outpatient (CLI) | payer BC, SELFPAY ==
--- NOTE | ~2025-01-22 | CT_ITS ---
EXAMINATION: CTA chest DATE: 01/22/2025 08:02 INDICATION: Other specified disorders of arteries. TECHNIQUE: Computed tomographic angiography (CTA) of the chest was performed with 100 mL Omnipaque-350 intravenous contrast. Automated exposure control and iterative reconstruction technique were employed. The dose-length product was 336.36 mGy-cm. Maximum intensity projection 3D-reconstructions of the aorta and other arteries were constructed by the technologist on a separate workstation. COMPARISON: Chest CTA 09/11/2022 FINDINGS: The lungs demonstrate mild atelectasis. There is a 3 mm nodule in left lower lobe, likely benign. No pleural effusion. The heart size is normal. No pericardial effusion. There is no pulmonary embolus. The aorta measures 4.7 cm at the sinuses of Valsalva, 4.0 cm at the sinotubular junction, 3.9 cm in the mid ascending aorta, 3.0 cm at the aortic isthmus, and 3.1 cm in the mid descending aorta. There is a 9 mm cyst in the liver. There are gallstones in the gallbladder, which is normal in size. There is a 12 mm mass in right kidney. There is mild thoracic spondylosis. There is mild chronic anterior wedging of T12 and L1 vertebral bodies. IMPRESSION: 1. Stable ectasia of ascending aorta measuring 4.7 cm at the sinuses of Valsalva. 2. 12 mm right kidney mass without change from 09/11/2022, most likely a hemorrhagic cyst, but neoplasm cannot be excluded. Consider abdomen CT or MRI without and with contrast. Reviewed, dictated and finalized at location E. IMPRESSION: 1. Stable ectasia of ascending aorta measuring 4.7 cm at the sinuses of Valsalv a. 2. 12 mm right kidney mass without change from 09/11/2022, most likely a hemorrh agic cyst, but neoplasm cannot be excluded. Consider abdomen CT or MRI without and with contrast.
== END 2025-01-22 07:45 | disposition home or self-care (01) ==
PROVIDERS: PCP Nurse Practitioner Family; Visit Provider Internal Medicine Cardiovascular Disease
DX: I77.89 Other specified disorders of arteries and arterioles (principal)
CPT/HCPCS: 71275; Q9967

== ENCOUNTER 2025-04-10 15:28 | Outpatient (CLI) | payer BC, SELFPAY ==
--- OUTSIDE RECORDS SUMMARY | 2025-04-10 15:31 | XMS_ITS | Encounter Summary ---
Author Organization [facility] Address [address] [place] [address] Phone Care Team Providers Care Roofing Applicator Name Role Phone Wendy Whelan NP Primary Care Provider [phone] Yandy Colbert MD Unavailable [phone] Encounter Details Date Type Department Care Team (Latest Contact Info) Description 08/14/2021 Orders Only [facility] Scanning, Provider Social History Tobacco Use Types Packs/Day Years Used Date Smoking Tobacco: Never Assessed Sex and Gender Information Value Date Recorded Sex Assigned at Not on file Legal Sex Male 9:33 AM CDT Gender Identity Not on file Sexual Orientation Not on file documented as of this encounter Plan of Treatment Not on file documented as of this encounter Procedures Procedure Name Priority Date/Time Associated Diagnosis Comments CARDIOLOGY DOCUMENT SCAN 08/14/2021 documented in this encounter Results * Cardiology Document Scan (08/14/2021) Anatomical Region Laterality Modality Other us Provider Scanning CV CARDIAC SERVICES PROCEDURES Final Result documented in this encounter Visit Diagnoses Not on filedocumented in this encounter Care Teams Roofing Applicator Relationship Specialty Start Date End Date Wendy Whelan NP [address] [place] [id number] PCP - General Family Medicine 02/01/25 Yandy Colbert MD [address] [place] [address] Referring Physician Cardiovascular Disease 02/13/25 documented as of this encounter
--- OUTSIDE RECORDS SUMMARY | 2025-04-10 15:31 | XMS_ITS | Encounter Summary ---
Author Organization [facility] Address [address] [place] [address] Phone Care Team Providers Care Retort Fireman Name Role Phone Wendy Whelan NP Primary Care Provider [phone] Yandy Colbert MD Unavailable [phone] Encounter Details Date Type Department Care Team (Latest Contact Info) Description 01/22/2025 Orders Only [facility] Scanning, Provider [...] Procedure Name Priority Date/Time Associated Diagnosis Comments SCAN - RADIOLOGY/IMAGING 01/22/2025 CARDIOLOGY DOCUMENT SCAN 01/22/2025 documented in this encounter Results * Cardiology Document Scan (01/22/2025) Anatomical Region Laterality Modality Other us Provider Scanning CV CARDIAC SERVICES PROCEDURES Final Result * SCAN - RADIOLOGY/IMAGING (01/22/2025) Anatomical Region Laterality Modality Other us Provider Scanning Final Result documented in this encounter Visit Diagnoses Not on filedocumented in this encounter Care Teams Retort Fireman Relationship Specialty Start Date End Date Wendy Whelan NP [address] [place] [address] PCP - General Family Medicine 02/01/25 Yandy Colbert MD [address] [place] [address] Referring Physician Cardiovascular Disease 02/13/25 documented as of this encounter
--- OUTSIDE RECORDS SUMMARY | 2025-04-10 15:31 | XMS_ITS | Encounter Summary ---
Author Organization [facility] Address [address] [place] [address] Phone Care Team Providers Care Asphalt Plant Laborer Name Role Phone Wendy Whelan NP Primary Care Provider [phone] Yandy Colbert MD Unavailable [phone] Encounter Details Date Type Department Care Team (Latest Contact Info) Description 09/11/2022 Orders Only [facility] C[facility] Scanning, Provider [...] Date/Time Associated Diagnosis Comments SCAN - RADIOLOGY/IMAGING 09/11/2022 CARDIOLOGY DOCUMENT SCAN 09/11/2022 documented in this encounter Results * SCAN - RADIOLOGY/IMAGING (09/11/2022) Anatomical Region Laterality Modality Other us Provider Scanning Edited Result - Final * Cardiology Document Scan (09/11/2022) Anatomical Region Laterality Modality Other us Provider Scanning CV CARDIAC SERVICES PROCEDURES Final Result documented in this encounter Visit Diagnoses Not on filedocumented in this encounter Care Teams Asphalt Plant Laborer Relationship Specialty Start Date End Date Wendy Whelan NP [address] [place] [address] PCP - General Family Medicine 02/01/25 Yandy Colbert MD [address] [place] [address] Referring Physician Cardiovascular Disease 02/13/25 documented as of this encounter
--- OUTSIDE RECORDS SUMMARY | 2025-04-10 15:31 | XMS_ITS | Encounter Summary ---
Author Organization [facility] Address [address] [place] [address] Phone Care Team Providers Care Contract Design Agent Name Role Phone Wendy Whelan NP Primary Care Provider [phone] Yandy Colbert MD Unavailable [phone] Encounter Details Date Type Department Care Team (Latest Contact Info) Description 08/20/2021 Orders Only [facility] C[facility] Scanning, Provider [...] Date/Time Associated Diagnosis Comments CARDIOLOGY DOCUMENT SCAN 08/20/2021 documented in this encounter Results * Cardiology Document Scan (08/20/2021) Anatomical Region Laterality Modality Other us Provider Scanning CV CARDIAC SERVICES PROCEDURES Final Result documented in this encounter Visit Diagnoses Not on filedocumented in this encounter Care Teams Contract Design Agent Relationship Specialty Start Date End Date Wendy Whelan NP [address] [place] [id number] PCP - General Family Medicine 02/01/25 Yandy Colbert MD [address] [place] [address] Referring Physician Cardiovascular Disease 02/13/25 documented as of this encounter
--- OUTSIDE RECORDS SUMMARY | 2025-04-10 15:31 | XMS_ITS | Clinical Summary ---
Author Organization [facility] Address [address] [place] [address] Care Team Providers Care Line Crew Supervisor Name Role Phone Wendy Whelan NP Primary Care Provider [phone] Yandy Painting MD Unavailable [phone] Allergies No known active allergies Medications atorvastatin (LIPITOR) 10 mg tablet Take 1 tablet (10 mg total) by mouth daily 90 tablet 3 02/07/2025 Active Active Problems No known active problems Encounters Date Type Department Care Team Description 03/14/2025 1:41 PM CDT - 03/14/2025 11:59 PM CDT Hospital Encounter [facility] [address] [place] [address] Discharge Disposition: Discharge to home or self care 02/28/2025 [facility] [address] [place] [address] [phone] Yandy Painting MD 02/15/2025 8:17 AM CDT - 02/15/2025 11:59 PM CDT Hospital Encounter [facility] [address] [place] [id number] Discharge Disposition: Discharge to home or self care 02/15/2025 [facility] [address] [place] [address] Office [facility] [address] [phone] Rossana Raymond 02/14/2025 3:00 PM CDT Ancillary Procedure [facility] [address] [facility] [address] [place] [address] Chest pain, unspecified type; Abnormal ECG; Sinus of Valsalva aneurysm 02/07/2025 2:00 PM CDT Office Visit [facility] [address] [facility] [address] [place] [address] Yandy Painting MD Sinus of Valsalva aneurysm (Primary Dx); Chest pain, unspecified type; Abnormal ECG; Mixed hyperlipidemia; Elevated blood pressure reading in office without diagnosis of hypertension 02/07/2025 Results Follow-Up [facility] [address] [facility] [address] [place] [address] Yandy Painting MD ECG 12 lead, Transthoracic Echo (TTE) Complete W Doppler/CF 02/05/2025 Documentation [facility] [address] [place] [address] Rubin Rojas IM DOC 02/01/2025 Telephone [facility] [address] [facility] 8th [place] [address] [place] [address] Nisa Stinson 01/22/2025 Orders Only [facility] Scanning, Provider from Last 3 Months Social History Tobacco Use Types Packs/Day Years Used Date Smoking Tobacco: Never Passive Smoke Exposure: Never Smokeless Tobacco: Never Tobacco Cessation:Counseling Given: Not Answered Sex and Gender Information Value Date Recorded Sex Assigned at Not on file Legal Sex Male 9:33 AM CDT Gender Identity Not on file Sexual Orientation Not on file 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 Not on file Not on file Last Filed Vital Signs Vital Sign Reading Time Taken Comments Blood Pressure 140/82 02/07/2025 2:00 PM CDT Pulse 87 02/07/2025 2:00 PM CDT Temperature - - Respiratory Rate - - Oxygen Saturation 98% 02/07/2025 2:00 PM CDT Inhaled Oxygen Concentration - - Weight 82.3 kg (181 lb 6.4 oz) 02/07/2025 2:00 P M CDT Height 175.3 cm (5' 9) 02/07/2025 2:00 PM CDT Body Mass Index 26.79 02/07/2025 2:00 PM CDT Plan of Treatment Health Maintenance Due Date Last Done Comments Colon Cancer Screening-Colonoscopy 1965 Depression Screening 1965 Hepatitis C Screening 1965 Prostate Cancer Screening-PSA 1967 DTaP/Tdap/Td Vaccine (1 - Tdap) 1978 Hepatitis B Screening 1985 Regular Well Visit/Exam 18-64 1985 Zoster Vaccine (1 of 2) 2017 Influenza Vaccine (#1) 2025 Pneumococcal vaccine <65 Aged Out No longer eligible based on patient's age to complete this topic Procedures Procedure Name Priority Date/Time Associated Diagnosis Comments CT BODY OUTSIDE REFERENCE Routine 03/14/2025 1:41 PM CDT US TRANSFER OF OUTSIDE FILMS Routine 02/15/2025 8:17 AM CDT TRANSTHORACIC ECHO (TTE) COMPLETE W DOPPLER/CF W CONTRAST Routine 02/14/2025 3:44 PM CDT Chest pain, unspecified type Abnormal ECG Sinus of Valsalva aneurysm ECG 12-LEAD Routine 02/07/2025 2:03 PM CDT Chest pain, unspecified type CARDIOLOGY DOCUMENT SCAN 01/22/2025 SCAN - RADIOLOGY/IMAGING 01/22/2025 from Last 3 Months Results * CT Body Outside Reference (03/14/2025 1:41 PM CDT) Impressions [facility] - 03/14/2025 1:41 PM CDT These images are for Reference purposes only and have not been reviewed by [facility]. There will be no report generated by a [facility] Radiologist. Narrative [facility] - 03/14/2025 1:41 PM CDT EXAMINATION: Images For Reference Purposes Only us Yandy Painting MD IMG CT PROCEDURES Final Resu lt [facility] * US Outside Reference (02/15/2025 8:17 AM CDT) Impressions BORIS[facility] - 02/15/2025 8:17 AM CDT These images are for Reference purposes only and have not been reviewed by [facility]. There will be no report generated by a [facility] Radiologist. Narrative LEONEL_PAULS[facility] - 02/15/2025 8:17 AM CDT EXAMINATION: Images For Reference Purposes Only us Yandy Painting MD IMG US PROCEDURES Final Resu lt [facility] * TRANSTHORACIC ECHO (TTE) COMPLETE W DOPPLER/CF W CONTRAST (02/14/2025 3:44 PM CDT) EF Mod BP 62 % CONS SCIMAGE Anatomical Region Laterality Modality Ultrasound 02/14/2025 2:54 PM CDT Narrative 02/14/2025 4:[address] [facility] Cardiac Diagnostic Lab [address] [place] [address] Transthoracic Echocardiographic Report Patient Name: JUAN TORRE : 1965 (59y 7m) Sex: M Study Date: 02/14/2025 02:54:44 PM Ht(Inch): 69 Wt(Lb): 181 BSA: 1.98 President & Ceo: Yun Cates RDCS Location: [facility] Order Provider: YANDY PAINTING Heart Rate: 82 BMI: 26.73 BP: 139 / 92 Ref Provider: YANDY PAINTING PROCEDURES: Echocardiographic Report: Transthoracic complete echo with strain imaging and contrast, 2D, spectral and tissue Doppler, color flow Doppler, M-mode. Additional Procedures: Myocardial strain imaging was performed. Contrast: Contrast Enhancement was Employed: After initial imaging due to sub- optimal quality related to co-morbidity defined by patient's body habitus, due to suboptimal image quality with inadequate visualization of at least 2 of 16 LV wall segments in any view after initial imaging. Perflutren contrast was administered using the volume necessary to obtain adequate images and. 0.4 ml Optison Administered, (2.6 ml wasted). Technically difficult study due to: Body habitus. Poor acoustic windows. 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 CONCLUSIONS: 1. Normal left ventricular size based on volume index. Concentric LV remodeling. Normal left ventricular systolic function. The Ejection Fraction (Mcdowell's) is measured at 62 %. Normal diastolic function. The average global longitudinal strain is borderline. 2. Normal right ventricular size. Normal right ventricular systolic function. 3. Normal trileaflet aortic valve. No aortic regurgitation. No aortic valve stenosis. The mean transaortic gradient is 2 mmHg. The aortic valve area by the continuity equation (using VTI) is 3.96 cm2. Aortic valve dimensionless index is 0.88. 4. Moderate aortic root dilation at sinuses of Valsalva. Dilation of the aortic root when indexed. Dilation of the ascending aorta when indexed. 5. The IVC was <2.1 cm and collapsibility >50%. (est. RA pressure 0-5 mmHg). 6. The Estimated PASP is : 15-20 mmHg. COMPARISONS: No previous study available for comparison. ATTESTATION: I have personally reviewed and interpreted this study without fellow or resident. DISCLAIMER: The study images and the final report will be retained in the patient chart by the Echo Laboratory for the legally required time period. This chart constitutes the legal record of any testing performed. FINDINGS: Left Ventricle: Normal left ventricular size based on volume index. Concentric LV remodeling. Normal left ventricular systolic function. The Ejection Fraction (Mcdowell's) is measured at 62 %. Normal diastolic function. The average global longitudinal strain is borderline. The LV global strain is: -16.2 %. Right Ventricle: Normal right ventricular size. Normal right ventricular systolic function. Left Atrium: The left atrium is normal in size. Right Atrium: The right atrium is normal in size. Mitral Valve: Normal mitral valve structure. No mitral regurgitation. Aortic Valve: Normal trileaflet aortic valve. No aortic regurgitation. No aortic valve stenosis. The mean transaortic gradient is 2 mmHg. The aortic valve area by the continuity equation (using VTI) is 3.96 cm2. Aortic valve dimensionless index is 0.88. Tricuspid Valve: Normal tricuspid valve structure. Mild tricuspid regurgitation. Pulmonic Valve: Normal pulmonic valve structure. Mild pulmonic regurgitation. No pulmonic valve stenosis present. Pericardium: No pericardial effusion. Aorta: Moderate aortic root dilation at sinuses of Valsalva. Dilation of the aortic root when indexed. Dilation of the ascending aorta when indexed. IVC: The IVC was <2.1 cm and collapsibility >50%. (est. RA pressure 0-5 mmHg). PASP: The Estimated PASP is : 15-20 mmHg. MEASUREMENTS: 2D/MM Value Range Doppler Value Range LVIDd 2D 4.75 cm [ 4.20 - 5.80 ] AV Peak Mir 0.9 m/s [ 1.0 - 1.7 ] LVIDs 2D 3.11 cm [ 2.50 - 4.00 ] AV Peak PG 3.24 mmHg IVSd 2D 1.06 cm [ 0.60 - 1.00 ] AV Mean PG 2 mmHg LVPWd 2D 1.27 cm [ 0.60 - 1.00 ] AV VTI 16.4 cm LV Thickness Ratio 0.8 LVOT Peak Mir 0.7 m/s [ 0.7 - 1.1 ] LV FS 2D 34.59 % [ 25.00 - 43.00 ] LVOT Peak PG 1.96 mmHg LV Mass 2D 210.14 g LVOT Mean PG 1 mmHg LV Mass Index 2D 106.14 g/m2 LVOT VTI 14.5 cm RWT 0.53 LVOT Diam 2.39 cm EDV Mod BP 110.91 ml [ 62.00 - 150.00 ] ALEX VTI 3.96 cm2 LV EDV Index 56.02 ml/m2 LVOT/AV VTI 0.88 - Dimensionless index (DVI) ESV Mod BP 42.38 ml [ 21.00 - 61.00 ] MV E Peak Mir 0.4 m/s [ 0.6 - 1.3 ] EF Mod BP 62 % [ 52 - 72 ] MV A Peak Mir 0.6 m/s [ 1.0 - 1.2 ] LV GLS -16.2 % [ -25.0 - -18.0 ] MV E/A 0.7 ratio [ 0.8 - 1.5 ] LA Length 4C 4.87 cm MV Decel Time 176.21 msec [ 104.00 - 258.00 ] LA Length 2C 4.83 cm Med E` Mir 7.7 cm/sec [ 8.0 - 25.0 ] LA Volume BP 33.25 ml Lat E` Mir 8.3 cm/sec [ 10.0 - 25.0 ] LA Volume Index 16.79 ml/m2 [ 16.00 - 34.00 ] Average E/E` 5.00 RV Base Dimen 2D 3.9 cm [ 2.5 - 4.2 ] RV S` 13.84 cm/sec TAPSE 2.14 cm [ 1.71 - 5.00 ] TR Peak Mir 2.1 m/s [ 1.0 - 2.8 ] RA Volume 22.26 ml TR Peak PG 17.6 mmHg RA Volume Index 11.24 ml/m2 PV Peak Mir 0.7 m/s [ 0.4 - 0.8 ] AoR Diam 2D 4.70 cm [ 3.10 - 3.70 ] PV Peak PG 1.96 mmHg Ao Root Index 2.37 cm/m2 [ 1.00 - 2.00 ] Asc Ao Diam 2D 3.95 cm Asc Ao Index 2.00 cm/m2 Electronically Signed By: Bimal Nielsen [facility] 02/14/2025 4:11:14 PM CDT Procedure Note Bimal Nielsen MD - 02/14/2025 [facility] Cardiac Diagnostic Lab [address] [place] [address] Transthoracic Echocardiographic Report Patient Name: JUAN TORRE : 1965 (59y 7m) Sex: M Study Date: 02/14/2025 02:54:44 PM Ht(Inch): 69 Wt(Lb): 181 BSA: 1.98 President & Ceo: Yun Cates RDCS Location: [facility] Order Provider:YANDY PAINTING Heart Rate: 82 BMI: 26.73 BP: 139 / 92 Ref Provider: YANDY PAINTING PROCEDURES: Echocardiographic Report: Transthoracic complete echo with strain imagingand contrast, 2D, spectral and tissue Doppler, color flow Doppler, M-mode. Additional Procedures: Myocardial strain imaging was performed. Contrast: Contrast Enhancement was Employed: After initial imaging due tosub- optimal quality related to co-morbidity defined by patient's body habitus, due tosuboptimal image quality with inadequate visualization of at least 2 of 16 LV wallsegments in any view after initial imaging. Perflutren contrast was administered using thevolume necessary to obtain adequate images and. 0.4 ml Optison Administered, (2.6ml wasted). Technically difficult study due to: Body habitus. Poor acoustic windows. 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 CONCLUSIONS: 1. Normal left ventricular size based on volume index. Concentric LVremodeling. Normal left ventricular systolic function. The Ejection Fraction (Mcdowell's) ismeasured at 62 %. Normal diastolic function. The average global longitudinal strain isborderline. 2. Normal right ventricular size. Normal right ventricular systolicfunction. 3. Normal trileaflet aortic valve. No aortic regurgitation. No aorticvalve stenosis. The mean transaortic gradient is 2 mmHg. The aortic valve area by thecontinuity equation (using VTI) is 3.96 cm2. Aortic valve dimensionless index is 0.88. 4. Moderate aortic root dilation at sinuses of Valsalva. Dilation of theaortic root when indexed. Dilation of the ascending aorta when indexed. 5. The IVC was <2.1 cm and collapsibility >50%. (est. RA pressure 0-5mmHg). 6. The Estimated PASP is : 15-20 mmHg. COMPARISONS: No previous study available for comparison. ATTESTATION: I have personally reviewed and interpreted this study without fellow orresident. DISCLAIMER: The study images and the final report will be retained in the patientchart by the Echo Laboratory for the legally required time period. This chart constitutesthe legal record of any testing performed. FINDINGS: Left Ventricle: Normal left ventricular size based on volume index.Concentric LV remodeling. Normal left ventricular systolic function. The EjectionFraction (Mcdowell's) is measured at 62 %. Normal diastolic function. The average globallongitudinal strain is borderline. The LV global strain is: -16.2 %. Right Ventricle: Normal right ventricular size. Normal right ventricularsystolic function. Left Atrium: The left atrium is normal in size. Right Atrium: The right atrium is normal in size. Mitral Valve: Normal mitral valve structure. No mitral regurgitation. Aortic Valve: Normal trileaflet aortic valve. No aortic regurgitation. Noaortic valve stenosis. The mean transaortic gradient is 2 mmHg. The aortic valve areaby the continuity equation (using VTI) is 3.96 cm2. Aortic valve dimensionlessindex is 0.88. Tricuspid Valve: Normal tricuspid valve structure. Mild tricuspidregurgitation. Pulmonic Valve: Normal pulmonic valve structure. Mild pulmonicregurgitation. No pulmonic valve stenosis present. Pericardium: No pericardial effusion. Aorta: Moderate aortic root dilation at sinuses of Valsalva. Dilation ofthe aortic root when indexed. Dilation of the ascending aorta when indexed. IVC: The IVC was <2.1 cm and collapsibility >50%. (est. RA pressure 0-5mmHg). PASP: The Estimated PASP is : 15-20 mmHg. MEASUREMENTS: 2D/MM Value Range DopplerValue Range LVIDd 2D 4.75 cm [ 4.20 - 5.80 ] AV Peak Vel0.9 m/s [ 1.0 - 1.7 ] LVIDs 2D 3.11 cm [ 2.50 - 4.00 ] AV Peak PG3.24 mmHg IVSd 2D 1.06 cm [ 0.60 - 1.00 ] AV Mean PG2 mmHg LVPWd 2D 1.27 cm [ 0.60 - 1.00 ] AV VTI16.4 cm LV Thickness Ratio 0.8 LVOT Peak Vel0.7 m/s [ 0.7 - 1.1 ] LV FS 2D 34.59 % [ 25.00 - 43.00 ] LVOT Peak PG1.96 mmHg LV Mass 2D 210.14 g LVOT Mean PG1 mmHg LV Mass Index 2D 106.14 g/m2 LVOT VTI14.5 cm RWT 0.53 LVOT Diam2.39 cm EDV Mod BP 110.91 ml [ 62.00 - 150.00 ] ALEX VTI3.96 cm2 LV EDV Index 56.02 ml/m2 LVOT/AV VTI0.88 - Dimensionless index (DVI) ESV Mod BP 42.38 ml [ 21.00 - 61.00 ] MV E Peak Vel0.4 m/s [ 0.6 - 1.3 ] EF Mod BP 62 % [ 52 - 72 ] MV A Peak Vel0.6 m/s [ 1.0 - 1.2 ] LV GLS -16.2 % [ -25.0 - -18.0 ] MV E/A0.7 ratio [ 0.8 - 1.5 ] LA Length 4C 4.87 cm MV Decel Fned698.21 msec [ 104.00 - 258.00 ] LA Length 2C 4.83 cm Med E` Vel7.7 cm/sec [ 8.0 - 25.0 ] LA Volume BP 33.25 ml Lat E` Vel8.3 cm/sec [ 10.0 - 25.0 ] LA Volume Index 16.79 ml/m2 [ 16.00 - 34.00 ] Average E/E`5.00 RV Base Dimen 2D 3.9 cm [ 2.5 - 4.2 ] RV S`13.84 cm/sec TAPSE 2.14 cm [ 1.71 - 5.00 ] TR Peak Vel2.1 m/s [ 1.0 - 2.8 ] RA Volume 22.26 ml TR Peak PG17.6 mmHg RA Volume Index 11.24 ml/m2 PV Peak Vel0.7 m/s [ 0.4 - 0.8 ] AoR Diam 2D 4.70 cm [ 3.10 - 3.70 ] PV Peak PG1.96 mmHg Ao Root Index 2.37 cm/m2 [ 1.00 - 2.00 ] Asc Ao Diam 2D3.95 cm Asc Ao Index2.00 cm/m2 Electronically Signed By: Bimal Nielsen [facility] 02/14/2025 4:11:14 PM CDT us Yandy Painting MD CV ECHO PROCEDURES Final Res ult * ECG 12 lead (02/07/2025 2:03 PM CDT) Yandy Painting MD ECG ORDERABLES Edited Resul t - Final * SCAN - RADIOLOGY/IMAGING (01/22/2025) Anatomical Region Laterality Modality Other us Provider Scanning Final Result * Cardiology Document Scan (01/22/2025) Anatomical Region Laterality Modality Other us Provider Scanning CV CARDIAC SERVICES PROCEDURES Final Result from Last 3 Months Insurance [employer] [place] Care Teams Line Crew Supervisor Relationship Specialty Start Date End Date Wendy Whelan NP [address] [place] [address] PCP - General Family Medicine 02/01/25 Yandy Painting MD [address] [place] [address] Referring Physician Cardiovascular Disease 02/13/25
--- OUTSIDE RECORDS SUMMARY | 2025-04-10 15:31 | XMS_ITS | Encounter Summary ---
Author Organization [facility] Address [address] [place] [address] Phone Care Team Providers Care Intelligence Chief Name Role Phone Wendy Whelan NP Primary Care Provider [phone] Yandy Colbert MD Unavailable [phone] Encounter Details Date Type Department Care Team (Latest Contact Info) Description 07/13/2021 Orders Only [facility] IM CARDIOLOGY Scanning, Provider [...] Date/Time Associated Diagnosis Comments CARDIOLOGY DOCUMENT SCAN 07/13/2021 documented in this encounter Results * Cardiology Document Scan (07/13/2021) Anatomical Region Laterality Modality Other us Provider Scanning CV CARDIAC SERVICES PROCEDURES Final Result documented in this encounter Visit Diagnoses Not on filedocumented in this encounter Care Teams Intelligence Chief Relationship Specialty Start Date End Date Wendy Whelan NP [address] [place] [id number] PCP - General Family Medicine 02/01/25 Yandy Colbert MD [address] [place] [address] Referring Physician Cardiovascular Disease 02/13/25 documented as of this encounter
--- OUTSIDE RECORDS SUMMARY | 2025-04-10 15:31 | XMS_ITS | Encounter Summary ---
Author Organization [facility] Address [address] [place] [address] Phone Care Team Providers Care Professor Of Education Name Role Phone Wendy Whelan NP Primary Care Provider [phone] Royce Colbert MD Unavailable [phone] Encounter Details Date Type Department Care Team (Latest Contact Info) Description 02/07/2025 Results Follow-Up [facility] Medicine Cardiology [address] [facility] [address] [place] [address] Royce Colbert MD [address] [place] [address] ECG 12 lead, Transthoracic Echo (TTE) Complete W Doppler/CF Social History Tobacco Use Types Packs/Day Years Used Date Smoking Tobacco: Never Passive Smoke Exposure: Never Smokeless Tobacco: Never Sex and Gender Information Value Date Recorded Sex Assigned at Not on file Legal Sex Male 9:33 AM CDT Gender Identity Not on file Sexual Orientation Not on file 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 on file Not on file documented as of this encounter Functional Status * BP Location Answer Date of Assessment Author Right arm 02/07/2025 2:00 PM Shelia Davila RMA * BP Location Answer Date of Assessment Author Right arm 02/07/2025 2:00 PM Shelia Davila RMA documented as of this encounter Plan of Treatment Not on file documented as of this encounter Visit Diagnoses Not on filedocumented in this encounter Care Teams Professor Of Education Relationship Specialty Start Date End Date Wendy Whelan NP [address] [place] [address] PCP - General Family Medicine 02/01/25 Royce Colbert MD [address] [place] [address] Referring Physician Cardiovascular Disease 02/13/25 documented as of this encounter
--- OUTSIDE RECORDS SUMMARY | 2025-04-10 15:31 | XMS_ITS | Encounter Summary ---
Author Organization [facility] Address [address] [place] [address] Phone Care Team Providers Care Pain Medicine Physician Name Role Phone Wendy Whelan NP Primary Care Provider [phone] Yandy Colbert MD Unavailable [phone] Encounter Details Date Type Department Care Team (Latest Contact Info) Description 07/04/2021 Orders Only [facility] Scanning, Provider [...] Date/Time Associated Diagnosis Comments SCAN - RADIOLOGY/IMAGING 07/04/2021 CARDIOLOGY DOCUMENT SCAN 07/04/2021 documented in this encounter Results * SCAN - RADIOLOGY/IMAGING (07/04/2021) Anatomical Region Laterality Modality Other us Provider Scanning Final Result * Cardiology Document Scan (07/04/2021) Anatomical Region Laterality Modality Other us Provider Scanning CV CARDIAC SERVICES PROCEDURES Final Result documented in this encounter Visit Diagnoses Not on filedocumented in this encounter Care Teams Pain Medicine Physician Relationship Specialty Start Date End Date Wendy Whelan NP [address] [place] [address] PCP - General Family Medicine 02/01/25 Yandy Colbert MD [address] [place] [address] Referring Physician Cardiovascular Disease 02/13/25 documented as of this encounter
== END 2025-04-10 15:29 | disposition home or self-care (01) ==
LOC: ANHLAB 15:29
PROVIDERS: PCP Nurse Practitioner Family; Visit Provider Nurse Practitioner Family
DX: R11.0 Nausea (principal)
CPT/HCPCS: 83013

== ENCOUNTER 2025-04-29 08:21 | Outpatient (CLI) | payer BC, SELFPAY ==
--- NOTE | ~2025-04-29 | US_ITS ---
EXAMINATION: US abdomen limited DATE: 04/29/2025 10:14 INDICATION: Gallstones TECHNIQUE: Multiple grayscale and Doppler ultrasound images of the abdomen were obtained. COMPARISON: None FINDINGS: Exam somewhat limited as above. The pancreas is incompletely visualized. The gallbladder measures up to 15 cm. Possible cystic area adjacent to the gallbladder measuring 10 x 9 mm. Hepatopedal flow seen in the portal vein. Multiple stones present in the gallbladder. The gallbladder wall thickness is approximately 2 mm. Common bile duct: 4 mm The right kidney measures 11.0 x 5.0 x 4.4 cm. Cystic appearing lesion present in the midpole measuring 1.1 cm. IMPRESSION: 1. Cholelithiasis with no gross sonographic evidence of acute cholecystitis. 2. Hypoechoic lesions in the liver and right kidney. The right renal cystic lesion appears benign. The liver lesion is not clearly defined. 3. Limited evaluation of the pancreas. Comment: Correlation with routine follow-up CT or MRI of the liver recommended. Reviewed, dictated and finalized at location A. DEVELOPER IMPRESSION: 1. Cholelithiasis with no gross sonographic evidence of acute cholecystitis. 2. Hypoechoic lesions in the liver and right kidney. The right renal cystic les ion appears benign. The liver lesion is not clearly defined. 3. Limited evaluation of the pancreas. Comment: Correlation with routine follow-up CT or MRI of the liver recommended.
== END 2025-04-29 08:22 | disposition home or self-care (01) ==
PROVIDERS: PCP Nurse Practitioner Family; Visit Provider Nurse Practitioner Family
DX: K80.20 Calculus of gallbladder without cholecystitis without obstruction (principal); R93.2 Abnormal findings on diagnostic imaging of liver and biliary tract; Q61.9 Cystic kidney disease, unspecified
CPT/HCPCS: 76705